=== PATIENT | male | born 1945 | race Caucasian/White ===

== ENCOUNTER 2023-08-20 12:47 | Outpatient (CLI) | payer MEDICARE | END 2023-08-20 12:48 | disposition home or self-care (01) | LOC: ULT 12:47 | PROVIDERS: ATTEND Family Medicine | DX: R82.89 Other abnormal findings on cytological and histological examination of urine (principal) | CPT/HCPCS: 76770 ==

== ENCOUNTER 2023-11-10 11:54 | Outpatient (CLI) | payer MEDICARE ==
[~2023-11-10 11:54] MED LIST: Iopamidol 370 76% 100 ML VIAL ONE
== END 2023-11-10 11:55 | disposition home or self-care (01) ==
LOC: CT 11:54
PROVIDERS: ATTEND Urology
DX: C67.0 Malignant neoplasm of trigone of bladder (principal); K44.9 Diaphragmatic hernia without obstruction or gangrene; K57.30 Diverticulosis of large intestine without perforation or abscess without bleeding; K80.20 Calculus of gallbladder without cholecystitis without obstruction; R91.1 Solitary pulmonary nodule
CPT/HCPCS: 74178; 82565

== ENCOUNTER 2023-11-19 11:25 | Outpatient (CLI) | payer MEDICARE ==
[2023-11-19 13:29] LABS: Hematocrit 44.2 % (38.8-50.0); Hemoglobin 15.4 g/dL (13.5-17.5); Mean Corpuscular HGB CONC 34.8 g/dL (32.0-36.0); Mean Corpuscular Hemoglobin 32.5 pg (27.0-33.0); Mean Corpuscular Volume 93.2 fl (81.2-95.1); Mean Platelet Volume 12.5 fl (7.4-10.4); Platelet Count 216 10x3/uL (150-450); RBC Distribution Width 12.4 % (11.5-14.5); Red Blood Cell (RBC) Count 4.74 10x6/uL (4.32-5.72); White Blood Cell (WBC) Count 6.3 10x3/uL (3.5-10.5)
[2023-11-19 13:43] LABS: Anion Gap 14 mmol/L (10-20); BUN (Urea Nitrogen) 10 mg/dL (8.4-25.7); Calc. Creatinine Clearance 0 mL/min (70-130); Calcium 9.7 mg/dL (7.8-10.44); Carbon Dioxide 30 mmol/L (23-31); Chloride 101 mmol/L (98-107); Estimated GFR 86; Glucose 105 mg/dL (83-110); Potassium 3.7 mmol/L (3.5-5.1); Sodium 141 mmol/L (136-145)
[2023-11-19 13:52] LABS: PTT 28.8 sec (22.0-33.0); Prothrombin Time 10.5 sec (9.5-12.1)
[2023-11-19 14:09] LABS: Bilirubin Neg (Negative); Blood, Urine Negative (Negative); Clarity Clear (Clear); Glucose, Urine (Dipstick) Normal (Negative); Ketone, Urine Negative (Negative); Leukocyte Negative (Negative); Nitrite Negative (Negative); Protein, Urine (Dipstick) Negative (Neg-Trace); Urobilinogen Normal mg/dL (Less than 2)
[2023-11-19 14:20] LABS: Bacteria/HPF None Seen HPF (None Seen); RBC/HPF 0-3 HPF (0-3); Squamous Epithelial 0-3 HPF (0-3); WBC/HPF None Seen HPF (0-3)
== END 2023-11-19 11:26 | disposition home or self-care (01) ==
LOC: LABBT 11:25
PROVIDERS: ATTEND Urology
DX: Z01.818 Encounter for other preprocedural examination (principal); I48.91 Unspecified atrial fibrillation
CPT/HCPCS: 80048; 81001; 85027; 85610; 85730; 87086; 93005; 93010

== ENCOUNTER 2023-12-03 08:14 | Day surgery (SDC) | payer MEDICARE ==
[2023-11-19 13:02] VITALS: BMI 34.4
[~2023-12-03 08:14] MED LIST changes: -Iopamidol 370 76% 100 ML VIAL ONE; +mitoMYcin 40 MG in Water For Injection,Sterile 20 ML I-VESIC SCH
[2023-12-03] MEDS ORDERED: SUGAMMADEX SODIUM 200 MG/2 ML VIAL ONE ×2 (10:11→11:37)
[2023-12-03] MEDS ORDERED: fentaNYL 50 mcg/mL 1 mL Vial ONE (10:39)
[2023-12-03] MEDS ORDERED: PROPOFOL 20 ML ONE (10:39)
[2023-12-03] MEDS ORDERED: Ondansetron PF 4 MG/2 ML Vial ONE (10:40)
[2023-12-03] MEDS ORDERED: Rocuronium Bromide 10 MG/ML (10ML VIAL) ONE (10:40)
[2023-12-03] MEDS ORDERED: LevoFLOXacin D5W 500 mg (100 mL) BAG ONE (10:52)
[2023-12-03] MEDS ORDERED: Oxybutynin 5 MG TAB ONE (12:19)
[2023-12-03] MEDS ORDERED: Phenazopyridine HCl 100 MG TAB ONE (12:20)
== END 2023-12-03 15:57 | disposition home or self-care (01) ==
LOC: SDC 08:14
PROVIDERS: ATTEND Urology
PROC: 0TBB8ZZ Excision of Bladder, Via Natural or Artificial Opening Endoscopic (ICD-10-PCS; principal; 2023-12-03)
DX: C67.0 Malignant neoplasm of trigone of bladder (principal); I10 Essential (primary) hypertension; I73.9 Peripheral vascular disease, unspecified; K21.9 Gastro-esophageal reflux disease without esophagitis
CPT/HCPCS: 51798; 52235; J3010; J9280; 88307; J1956; J2405; J2704